=== PATIENT | male | born 2000 | race Caucasian/White ===

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

== ENCOUNTER 2022-09-19 12:29 | Emergency (ER) | payer BC, MEDICAID ==
[~2022-09-19] VITALS: Ht 172.7 cm; Wt 113.4 kg
[2022-09-19 13:28] VITALS: BP_SYST 108
--- NOTE | 2022-09-19 13:34 | NUR ---
PT TRIAGED TO WR, INSTRUCTED IN MAIN ED AT CAPACITY AND REASON FOR WAIT. INSTRUCTED TO NOTIFY RN OF ANY CHANGES
--- NOTE | 2022-09-19 16:23 | NUR ---
PT CALLED IN LOBBY, NO ANSWER
[2022-09-19 16:40] VITALS: BP_SYST 108
--- NOTE | 2022-09-19 16:41 | NUR ---
PT LWBS CALLED NO ANSWER
== END 2022-09-19 16:41 | disposition left against medical advice (07) ==
LOC: SED 12:29
DX: R42 Dizziness and giddiness (principal); R11.10 Vomiting, unspecified; Z53.21 Procedure and treatment not carried out due to patient leaving prior to being seen by health care provider

== ENCOUNTER 2022-09-23 10:06 | Emergency (ER) | payer BC, MEDICAID ==
[~2022-09-23] VITALS: Ht 172.7 cm; Wt 111.6 kg
[2022-09-23 10:10] VITALS: BP_SYST 120
--- NOTE | 2022-09-23 10:10 | NUR ---
Pt brought by family, A&Ox4, pt presents to ER with bodyaches and dizziness x 3 days, skin pink and warm, cap refill <3, VSS, respirations even and unlabored, BS 118, will cont to monitor.
--- NOTE | 2022-09-23 10:26 | NUR ---
FLU AND COVID SAMPLE COLLECTED
--- NOTE | 2022-09-23 11:00 | NUR ---
ED FLAMMIA AT BEDSIDE FOR EXAM
[2022-09-23] MEDS ORDERED: IBUP-1969 PO (11:45)
[2022-09-23] MEDS ORDERED: PHEN-683 PO (11:45)
--- NOTE | 2022-09-23 11:54 | NUR ---
Patient given written and verbal discharge instructions and verbalizes understanding. ER MD discussed with patient the results and treatment provided. Patient in stable condition. ID arm band removed. Rx of given. Opportunity for questions provided and answered. Medication side effect fact sheet provided.
== END 2022-09-23 11:54 | disposition home or self-care (01) ==
LOC: SED 10:06
DX: U07.1 COVID-19 (principal); Z79.899 Other long term (current) drug therapy
CPT/HCPCS: 36415; 82962; 99283

== ENCOUNTER 2024-06-22 11:53 | Emergency (ER) | payer BC, MEDICAID ==
[~2024-06-22] VITALS: Ht 172.7 cm; Wt 127.0 kg
[~2024-06-22 11:53] MED LIST: IBUP-1969 PO; PHEN-683 PO
[2024-06-22 12:06] VITALS: BP_SYST 156; PULSE 85; RESP 18; TEMP 97.6; O2SAT 97
[2024-06-22] MEDS: DIPHTH,PERTUSS(ACELL),TET VAC 0.5 ML VIAL (Tdap) I.M. ONE (13:18)
[2024-06-22] MEDS: BACITRACIN 1 GM OINT TP ONE (13:19)
[2024-06-22] MEDS: LIDOCAINE 1% 10 MG/ML, 20 ML MDV INJ ONE (13:20)
[2024-06-22 13:52] VITALS: BP_SYST 143; PULSE 80; RESP 20; TEMP 97.1; O2SAT 95
== END 2024-06-22 13:52 | disposition home or self-care (01) ==
LOC: SED 11:53
DX: S61.011A Laceration without foreign body of right thumb without damage to nail, initial encounter (principal); Z23 Encounter for immunization; Z79.899 Other long term (current) drug therapy; W26.8XXA Contact with other sharp object(s), not elsewhere classified, initial encounter; Y93.89 Activity, other specified; Y92.89 Other specified places as the place of occurrence of the external cause; Y99.8 Other external cause status
CPT/HCPCS: 90715; 99283; J2001